=== PATIENT | male | born 1930 | race Caucasian/White ===

== ENCOUNTER 2017-08-26 12:14 | Observation (INO) ==
[2017-08-26] MEDS ORDERED: ADENOSINE 6 MG/2 ML VIAL ONE (12:33)
[2017-08-26] MEDS ORDERED: DILTIAZEM 100 MG VIAL.ADD IV ONE (12:40)
[2017-08-26] MEDS ORDERED: SODIUM CHLORIDE 0.9% 100 ML IV ONE (12:40)
[2017-08-26] MEDS ORDERED: DILTIAZEM 50 MG/10 ML VIAL IV ONE (12:40)
[2017-08-26] MEDS ORDERED: DILTIAZEM 50 MG/10 ML VIAL IV STA (12:43)
[2017-08-26 12:52] LABS: Basophils % 0.3 % (0.0-0.8); Eosinophils % 0.2 % (0.00-10.9); Hematocrit 36.5 VOL% (42.0-52.0); Hemoglobin 12.6 GM/DL (14.0-18.0); Immature Granulocytes % 0.7 %; Immature Granulocytes Absolute 0.07 #; Lymphocytes # 1.3 10*3/uL (1.4-4.0); Lymphocytes % 12.4 % (21.2-54.2); Mean Corpuscular HGB Conc 34.5 GM/DL (32-36); Mean Corpuscular Hemoglobin 35 PG (27-34); Mean Corpuscular Volume 100.6 FL (87-102); Mean Platelet Volume 10.4 FL (9.6-12.0); Monocytes # 1.1 10*3/uL (0.11-0.8); Monocytes % 10.7 % (1.7-12.7); Neutrophils # 7.8 10*3/uL (1.4-7.4); Neutrophils % 75.7 % (38.7-73.9); Platelet Count 231 T/CUMM (130-400); Red Blood Count 3.63 MC/CUMM (3.8-5.5); Red Cell Distribution Width 12.1 % (9.3-17.3); White Blood Count 10.3 T/CUMM (4-12)
[2017-08-26] MEDS ORDERED: ADENOSINE 6 MG/2 ML VIAL IV STA ×2 (12:52)
[2017-08-26 13:00] LABS: INR 1.1; PT Patient Result 11.4 SECS; Partial Thromboplastin Time 31.1 SECS (0-40)
[2017-08-26 13:12] LABS: Free T4 (Free Thyroxine) 0.89 NG/DL (0.76-1.46); Magnesium 2.5 MG/DL (1.8-2.4)
[2017-08-26] MEDS ORDERED: SODIUM CHLORIDE 0.9% 1,000 ML IV STA (13:12)
[2017-08-26] MEDS: DILTIAZEM INJ 100 MG in SODIUM CHLORIDE 0.9% 100 ML IV SCH (13:13)
[2017-08-26 13:18] LABS: Albumin 3.3 G/DL (3.4-5.0); Bilirubin,Total 0.8 MG/DL (0.2-1.0); Calcium 8.7 MG/DL (8.5-10.1); Osmolality,Calculated 271.1 MOS/KG (273-304); Potassium 3.9 MMOL/L (3.5-5.1); Thyroid Stimulating Hormone 7.97 uIU/ml (0.358-3.74); Total Protein 7.7 G/DL (6.4-8.3); Troponin I Only 0.034 NG/ML (0.00-0.045)
[2017-08-26] MEDS ORDERED: ZALEPLON 5 MG CAPSULE PO PRN (15:30)
[2017-08-26] MEDS ORDERED: ACETAMINOPHEN 325 MG TABLET PO PRN (15:30)
[2017-08-26] MEDS ORDERED: MORPHINE 2 MG/1 ML SYRINGE IV PRN (15:30)
[2017-08-26] MEDS ORDERED: DOCUSATE SODIUM 100 MG CAPSULE PO PRN (15:30)
[2017-08-26] MEDS ORDERED: ONDANSETRON 4 MG/2 ML VIAL IV PRN (15:30)
[2017-08-26] MEDS ORDERED: MAGNESIUM SULF RIDER 2 GM in PREMIX 1 EACH IV PRN ×2 (15:31→18:15)
[2017-08-26] MEDS ORDERED: MAGNESIUM SULF RIDER 4 GM in PREMIX 1 EACH IV PRN ×2 (15:31→18:15)
[2017-08-26] MEDS: ASPIRIN EC 325 MG TABLET PO SCH (18:00)
[2017-08-26] MEDS: PANTOPRAZOLE 40 MG TABLET PO SCH (18:00)
[2017-08-26] MEDS: ENOXAPARIN 40 MG/0.4 ML SYRINGE SUBCUT SCH ×2 (18:00→18:47)
[2017-08-26] MEDS: CARVEDILOL 6.25 MG TABLET PO SCH (21:33)
[2017-08-27 05:10] LABS: Basophils % 0.3 % (0.0-0.8); Eosinophils # 0.2 10*3/uL (0.0-0.87); Eosinophils % 2.1 % (0.00-10.9); Hemoglobin 10.7 GM/DL (14.0-18.0); Immature Granulocytes % 0.7 %; Immature Granulocytes Absolute 0.05 #; Lymphocytes # 1.5 10*3/uL (1.4-4.0); Lymphocytes % 19.9 % (21.2-54.2); Mean Corpuscular HGB Conc 34.5 GM/DL (32-36); Mean Corpuscular Hemoglobin 35 PG (27-34); Mean Platelet Volume 10.7 FL (9.6-12.0); Monocytes # 0.7 10*3/uL (0.11-0.8); Monocytes % 8.7 % (1.7-12.7); Neutrophils # 5.3 10*3/uL (1.4-7.4); Neutrophils % 68.3 % (38.7-73.9); Platelet Count 186 T/CUMM (130-400); Red Blood Count 3.07 MC/CUMM (3.8-5.5); Red Cell Distribution Width 12.1 % (9.3-17.3); White Blood Count 7.7 T/CUMM (4-12)
[2017-08-27 05:46] LABS: Albumin 2.6 G/DL (3.4-5.0); Bilirubin,Total 2.1 MG/DL (0.2-1.0); Calcium 8.1 MG/DL (8.5-10.1); Osmolality,Calculated 280.4 MOS/KG (273-304); Potassium 4.4 MMOL/L (3.5-5.1); Risk Ratio 2.92; Total Protein 5.7 G/DL (6.4-8.3)
[2017-08-27 05:49] LABS: Calcium 8.1 MG/DL (8.5-10.1); Magnesium 2.4 MG/DL (1.8-2.4); Osmolality,Calculated 279.5 MOS/KG (273-304); Potassium 4.4 MMOL/L (3.5-5.1)
[2017-08-27] MEDS: SODIUM CHLORIDE 0.9% 1,000 ML IV SCH ×3 (06:31→16:01)
[2017-08-27] MEDS: CARVEDILOL 6.25 MG TABLET PO SCH ×2 (08:38→21:20)
[2017-08-27] MEDS: ASPIRIN EC 325 MG TABLET PO SCH (08:38)
[2017-08-27] MEDS: PANTOPRAZOLE 40 MG TABLET PO SCH (08:38)
[2017-08-27 12:40] LABS: Free T4 (Free Thyroxine) 0.99 NG/DL (0.76-1.46); Thyroid Stimulating Hormone 3.48 uIU/ml (0.358-3.74)
[2017-08-27] MEDS: DILTIAZEM INJ 100 MG in SODIUM CHLORIDE 0.9% 100 ML IV SCH (16:00)
[2017-08-27] MEDS: ENOXAPARIN 40 MG/0.4 ML SYRINGE SUBCUT SCH ×3 (20:00→22:14)
[2017-08-28 06:19] LABS: Basophils # 0.1 10*3/uL (0.0-0.2); Basophils % 0.8 % (0.0-0.8); Eosinophils # 0.3 10*3/uL (0.0-0.87); Eosinophils % 3.3 % (0.00-10.9); Hematocrit 31.6 VOL% (42.0-52.0); Immature Granulocytes % 0.6 %; Immature Granulocytes Absolute 0.05 #; Lymphocytes # 1.4 10*3/uL (1.4-4.0); Lymphocytes % 18.2 % (21.2-54.2); Mean Corpuscular HGB Conc 34.8 GM/DL (32-36); Mean Corpuscular Hemoglobin 35 PG (27-34); Mean Platelet Volume 10.2 FL (9.6-12.0); Monocytes # 0.7 10*3/uL (0.11-0.8); Monocytes % 8.6 % (1.7-12.7); Neutrophils # 5.4 10*3/uL (1.4-7.4); Neutrophils % 68.5 % (38.7-73.9); Platelet Count 204 T/CUMM (130-400); Red Blood Count 3.16 MC/CUMM (3.8-5.5); Red Cell Distribution Width 11.9 % (9.3-17.3); White Blood Count 7.9 T/CUMM (4-12)
[2017-08-28 07:03] LABS: Albumin 2.6 G/DL (3.4-5.0); Bilirubin,Total 0.8 MG/DL (0.2-1.0); Calcium 7.7 MG/DL (8.5-10.1); Total Protein 5.4 G/DL (6.4-8.3)
[2017-08-28 07:04] LABS: Osmolality,Calculated 278.5 MOS/KG (273-304); Potassium 4.2 MMOL/L (3.5-5.1)
[2017-08-28 08:15] VITALS: BP 104/66
[2017-08-28] MEDS: PANTOPRAZOLE 40 MG TABLET PO SCH (08:17)
[2017-08-28] MEDS: ASPIRIN EC 325 MG TABLET PO SCH (08:17)
[2017-08-28] MEDS: CARVEDILOL 6.25 MG TABLET PO SCH (08:17)
== END 2017-08-28 09:08 | disposition home or self-care (01) ==
LOC: N.EDINP 12:14 → N.ED 12:14 → N.EDINP 15:44 → N.TELEN 16:11
PROVIDERS: ADMIT Internal Medicine Cardiovascular Disease; ATTEND Internal Medicine Cardiovascular Disease

== ENCOUNTER 2020-01-04 05:52 | Inpatient (IN) ==
[2019-12-28 13:43] LABS: Basophils % 0.4 % (0.0-0.8); Eosinophils # 0.1 10*3/uL (0.0-0.87); Eosinophils % 1.9 % (0.00-10.9); Hematocrit 36.4 VOL% (42.0-52.0); Immature Granulocytes % 1.3 %; Immature Granulocytes Absolute 0.09 #; Lymphocytes # 1.5 10*3/uL (1.4-4.0); Monocytes % 9.6 % (1.7-12.7); Neutrophils % 64.8 % (38.7-73.9); Platelet Count 175 T/CUMM (130-400); Red Blood Count 3.57 MC/CUMM (3.8-5.5); Red Cell Distribution Width 12.8 % (9.3-17.3)
[2019-12-28 14:04] LABS: Albumin 3.7 G/DL (3.4-5.0); Bilirubin,Total 0.8 MG/DL (0.2-1.0); Calcium 8.5 MG/DL (8.5-10.1); Total Protein 7.3 G/DL (6.4-8.3)
[2019-12-28 18:57] LABS: PT Patient Result 10.9 SECS (9.6-12.2)
[2020-01-04] MEDS ORDERED: ceFAZolin 1,000 MG in SYRINGE 1 EACH IV ONE (06:00)
[2020-01-04] MEDS ORDERED: VANCOMYCIN 500 MG VIAL ONE (06:34)
[2020-01-04] MEDS ORDERED: LIDOCAINE 2% TOP JELLY 5 ML TUBE TOP ONE (06:34)
[2020-01-04] MEDS ORDERED: LIDOCAINE 2% TOP JELLY 20 ML VIAL INTRAURETH ONE (06:37)
[2020-01-04] MEDS ORDERED: HEPARIN/NACL 0.9% 2 UNITS/ML 500 ML IV ONE (06:37)
[2020-01-04] MEDS: SODIUM CHLORIDE 0.9% 1,000 ML IV SCH (06:40)
[2020-01-04] MEDS ORDERED: ceFAZolin 1,000 MG VIAL ONE (06:55)
[2020-01-04] MEDS ORDERED: HEPARIN/NACL 0.9% 2 UNITS/ML 3,000 ML IV ONE (07:34)
[2020-01-04] MEDS ORDERED: ONDANSETRON 4 MG/2 ML VIAL IV PRN (10:31)
[2020-01-04] MEDS ORDERED: HYDROmorphone 2 MG/1 ML VIAL IV PRN (10:31)
[2020-01-04] MEDS ORDERED: BENZONATATE 100 MG PO PRN (10:34)
[2020-01-04] MEDS ORDERED: HEPARIN 10,000 UNIT/10 ML VIAL ONE (11:00)
[2020-01-04] MEDS ORDERED: LIDOCAINE 2% 5 ML VIAL ONE (11:00)
[2020-01-04] MEDS ORDERED: SEVOFLURANE 1 UNIT/15 MINUTE INH ONE (11:00)
[2020-01-04] MEDS ORDERED: PHENYLEPHRINE DRIP 20 MG/250 ML PREMIX IV ONE (11:00)
[2020-01-04] MEDS ORDERED: ePHEDrine 50 MG/ML AMP ONE (11:01)
[2020-01-04] MEDS ORDERED: PHENYLEPHRINE 1 MG/10 ML SYRINGE IV ONE (11:01)
[2020-01-04] MEDS ORDERED: ROCURONIUM 100 MG/10 ML VIAL IV ONE (11:01)
[2020-01-04] MEDS ORDERED: fentaNYL 100 MCG/2 ML VIAL ONE (11:01)
[2020-01-04] MEDS ORDERED: ETOMIDATE 40 MG/20 ML VIAL IV ONE (11:01)
[2020-01-04] MEDS ORDERED: PROTAMINE SULFATE 50 MG/5 ML VIAL IV ONE (11:01)
[2020-01-04] MEDS ORDERED: SODIUM CHLORIDE 0.9% 200 ML IV ONE (11:02)
[2020-01-04] MEDS: PYRIDOXINE 100 MG PO SCH ×3 (13:00→23:36)
[2020-01-04] MEDS: AMOXICILLIN 500 MG CAPSULE PO SCH ×2 (13:30→20:58)
[2020-01-04] MEDS: LACTATED RINGERS 1,000 ML IV SCH (18:37)
[2020-01-04] MEDS: TAMSULOSIN 0.4 MG CAPSULE PO SCH (20:58)
[2020-01-04] MEDS: [UNRECOGNIZED DRUG - OTHER] PO SCH (23:36)
[2020-01-05 04:31] LABS: Hematocrit 27.8 VOL% (42.0-52.0); Hemoglobin 9.4 GM/DL (14.0-18.0)
[2020-01-05 05:04] LABS: Calcium 7.7 MG/DL (8.5-10.1); Osmolality,Calculated 275.5 MOS/KG (273-304)
[2020-01-05] MEDS: AMOXICILLIN 500 MG CAPSULE PO SCH ×3 (05:22→20:17)
[2020-01-05] MEDS: LEVOTHYROXINE 88 MCG TABLET PO SCH (06:38)
[2020-01-05] MEDS: LACTATED RINGERS 1,000 ML IV SCH (06:43)
[2020-01-05] MEDS: TAMSULOSIN 0.4 MG CAPSULE PO SCH ×2 (09:17→20:17)
[2020-01-05] MEDS: SIMVASTATIN 20 MG TABLET PO SCH (09:17)
[2020-01-05] MEDS: [UNRECOGNIZED DRUG - OTHER] PO SCH ×2 (09:18→20:25)
[2020-01-05] MEDS: [UNRECOGNIZED DRUG - OTHER] PO SCH (09:18)
[2020-01-05] MEDS: PYRIDOXINE 100 MG PO SCH ×4 (09:19→20:26)
[2020-01-05] MEDS: COENZYME Q10 10 MG PO SCH (09:20)
[2020-01-05] MEDS: PREVAGEN PO SCH (09:20)
[2020-01-05] MEDS: DILTIAZEM HCL 120 MG PO SCH (09:20)
[2020-01-05] MEDS: SODIUM CHLORIDE 0.9% 1,000 ML IV SCH (10:29)
[2020-01-06] MEDS: AMOXICILLIN 500 MG CAPSULE PO SCH (03:32)
[2020-01-06] MEDS: LEVOTHYROXINE 88 MCG TABLET PO SCH (06:20)
[2020-01-06] MEDS: TAMSULOSIN 0.4 MG CAPSULE PO SCH (09:03)
[2020-01-06] MEDS: SIMVASTATIN 20 MG TABLET PO SCH (09:03)
[2020-01-06] MEDS: DILTIAZEM HCL 120 MG PO SCH (09:04)
[2020-01-06] MEDS: PYRIDOXINE 100 MG PO SCH (09:06)
[2020-01-06] MEDS: PREVAGEN PO SCH (09:06)
[2020-01-06] MEDS: COENZYME Q10 10 MG PO SCH (09:06)
[2020-01-06] MEDS: [UNRECOGNIZED DRUG - OTHER] PO SCH (09:07)
[2020-01-06] MEDS: [UNRECOGNIZED DRUG - OTHER] PO SCH (09:07)
[2020-01-06 11:23] VITALS: BP 122/53
== END 2020-01-06 11:30 | disposition home or self-care (01) | DRG 269 ==
LOC: N.OR 05:52 → N.SDSINP 05:54 → EDSTATUS 07:00 → N.SDSINP 10:31 → N.3E 11:41
PROVIDERS: ADMIT Surgery; ATTEND Surgery
PROC: IRERAAA (2020-01-04 08:00)

== ENCOUNTER 2020-10-01 12:14 | Inpatient (IN) ==
[2020-10-01 14:01] LABS: Bilirubin,Urine Negative (Negative); Blood, Urine Negative (Negative); Glucose,Urine (UA) Negative (Negative); Ketones,Urine Negative (Negative); Mucus,Urine Occasional /LPF (Occasional); Nitrite,Urine Negative (Negative); Protein,Urine 30 MG/DL; RBC,Urine 1 /HPF (0-4); Urine Appearance CLEAR (Clear); Urine Color Yellow (Yellow); Urine Urobilinogen < 2.0 EU/DL (0.2-1.0); WBC,Urine <1 /HPF (0-6)
[2020-10-01 14:09] LABS: Basophils % 0.2 % (0.0-0.8); Eosinophils # 0.1 10*3/uL (0.0-0.87); Eosinophils % 0.7 % (0.00-10.9); Hematocrit 34.7 VOL% (42.0-52.0); Hemoglobin 11.9 GM/DL (14.0-18.0); Immature Granulocytes % 0.8 %; Lymphocytes # 0.8 10*3/uL (1.4-4.0); Mean Corpuscular HGB Conc 34.3 GM/DL (32-36); Mean Corpuscular Volume 100.9 FL (87-102); Monocytes % 5.2 % (1.7-12.7); Neutrophils % 87.1 % (38.7-73.9); Platelet Count 152 T/CUMM (130-400); Red Blood Count 3.44 MC/CUMM (3.8-5.5); White Blood Count 13.2 T/CUMM (4-12)
[2020-10-01 14:27] LABS: Albumin 2.9 G/DL (3.4-5.0); Bilirubin,Total 1.4 MG/DL (0.2-1.0); Calcium 8.3 MG/DL (8.5-10.1); Osmolality,Calculated 273.1 MOS/KG (273-304); Potassium 4.1 MMOL/L (3.5-5.1); Total Protein 6.9 G/DL (6.4-8.3)
[2020-10-01] MEDS ORDERED: BISACODYL 5 MG TABLET PO PRN (15:07)
[2020-10-01] MEDS ORDERED: ONDANSETRON 4 MG/2 ML VIAL IV PRN (15:07)
[2020-10-01] MEDS ORDERED: ACETAMINOPHEN 325 MG TABLET PO PRN (15:07)
[2020-10-01] MEDS ORDERED: GLUCAGON 1 MG VIAL IM PRN (15:07)
[2020-10-01] MEDS ORDERED: DOCUSATE SODIUM 100 MG CAPSULE PO PRN (15:07)
[2020-10-01] MEDS ORDERED: MORPHINE 4 MG/1 ML VIAL IV PRN (15:07)
[2020-10-01] MEDS ORDERED: SIMETHICONE CHEW 125 MG TABLET PO PRN (15:07)
[2020-10-01] MEDS ORDERED: ALUMINUM/MAGNES/SIMETH MAX STR 30 ML UDCUP PO PRN (15:07)
[2020-10-01] MEDS ORDERED: guaiFENesin/DM ER 600-30 MG TABLET PO PRN (15:07)
[2020-10-01] MEDS ORDERED: hydrALAZINE 20 MG/1 ML VIAL IV PRN (15:07)
[2020-10-01] MEDS ORDERED: LACTULOSE 20 GM/30 ML UDCUP PO PRN (15:07)
[2020-10-01] MEDS ORDERED: DEXTROSE 50% 25 GM/50 ML VIAL IV PRN (15:07)
[2020-10-01] MEDS ORDERED: ZALEPLON 5 MG CAPSULE PO PRN (15:07)
[2020-10-01] MEDS ORDERED: CALCIUM CARBONATE CHEW 500 MG TABLET PO PRN (15:07)
[2020-10-01] MEDS ORDERED: SODIUM CHLORIDE 0.9% 1,000 ML IV SCH (15:30)
[2020-10-01] MEDS: ALBUTEROL 2.5 MG/3 ML NEB RESP TX SCH (19:58)
[2020-10-01] MEDS: ALBUTEROL/IPRATROPIUM 3 ML NEB RESP TX SCH (19:58)
[2020-10-01] MEDS: TAMSULOSIN 0.4 MG CAPSULE PO SCH (20:39)
[2020-10-02] MEDS: ALBUTEROL 2.5 MG/3 ML NEB RESP TX SCH (01:53)
[2020-10-02] MEDS: ALBUTEROL/IPRATROPIUM 3 ML NEB RESP TX SCH ×4 (01:53→19:17)
[2020-10-02] MEDS ORDERED: ceFAZolin 1,000 MG in SYRINGE 1 EACH IV ONE (06:00)
[2020-10-02] MEDS ORDERED: VANCOMYCIN INJ 1,000 MG in SODIUM CHLORIDE 0.9% 250 ML IV ONE (06:00)
[2020-10-02 06:21] LABS: Basophils % 0.2 % (0.0-0.8); Eosinophils # 0.1 10*3/uL (0.0-0.87); Eosinophils % 1.4 % (0.00-10.9); Hematocrit 29.7 VOL% (42.0-52.0); Hemoglobin 10.1 GM/DL (14.0-18.0); Immature Granulocytes % 0.9 %; Immature Granulocytes Absolute 0.09 #; Lymphocytes % 9.6 % (21.2-54.2); Mean Corpuscular Volume 100.7 FL (87-102); Mean Platelet Volume 10.2 FL (9.6-12.0); Monocytes % 7.8 % (1.7-12.7); Neutrophils % 80.1 % (38.7-73.9); Platelet Count 128 T/CUMM (130-400); Red Blood Count 2.95 MC/CUMM (3.8-5.5); Red Cell Distribution Width 13.2 % (9.3-17.3); White Blood Count 10.3 T/CUMM (4-12)
[2020-10-02 06:55] LABS: Albumin 2.4 G/DL (3.4-5.0); Calcium 7.8 MG/DL (8.5-10.1); Risk Ratio 3.14; Thyroid Stimulating Hormone 4.72 uIU/ml (0.358-3.74); Total Protein 5.9 G/DL (6.4-8.3); VLDL CHOLESTEROL 16.6 MG/DL
[2020-10-02] MEDS ORDERED: TRANEXAMIC ACID 1,000 MG/10 ML VIAL ONE (07:24)
[2020-10-02] MEDS ORDERED: DEXMEDETOMIDINE 200 MCG/2 ML VIAL ONE (07:24)
[2020-10-02] MEDS ORDERED: BUPIVACAINE SPINAL 0.75% 2 ML AMP SPINAL ONE (07:24)
[2020-10-02] MEDS ORDERED: MIDAZOLAM 2 MG/2 ML VIAL ONE (07:25)
[2020-10-02] MEDS ORDERED: DEXAMETHASONE 4 MG/1 ML VIAL ONE (07:30)
[2020-10-02] MEDS ORDERED: LIDOCAINE 1% 5 ML VIAL ONE (07:30)
[2020-10-02] MEDS ORDERED: ROPIVACAINE 0.5% 30 ML VIAL ONE (07:30)
[2020-10-02] MEDS ORDERED: DILTIAZEM CD 120 MG CAPSULE PO ONE (07:58)
[2020-10-02] MEDS: PANTOPRAZOLE 40 MG TABLET PO SCH (08:40)
[2020-10-02] MEDS: LEVOTHYROXINE 88 MCG TABLET PO SCH (08:40)
[2020-10-02] MEDS: TAMSULOSIN 0.4 MG CAPSULE PO SCH ×2 (08:40→20:41)
[2020-10-02] MEDS ORDERED: SIMVASTATIN 20 MG TABLET PO SCH (09:00)
[2020-10-02] MEDS ORDERED: TUBERCULIN SKIN TEST 0.1 ML SYRINGE INTRADERM ONE (09:17)
[2020-10-02] MEDS ORDERED: PHENYLEPHRINE 1 MG/10 ML SYRINGE IV ONE ×4 (10:06→10:28)
[2020-10-02] MEDS ORDERED: BACITRACIN OINT 0.9 GM PACK TOP ONE (10:32)
[2020-10-02] MEDS ORDERED: MORPHINE 4 MG/1 ML VIAL IV PRN ×2 (10:39)
[2020-10-02] MEDS ORDERED: MAGNESIUM HYDROXIDE SUSP 30 ML UDCUP PO PRN (10:39)
[2020-10-02] MEDS: LACTATED RINGERS 1,000 ML IV SCH ×3 (11:31→11:32)
[2020-10-02] MEDS: ceFAZolin 1,000 MG in SYRINGE 1 EACH IV SCH (16:50)
[2020-10-03] MEDS: ALBUTEROL/IPRATROPIUM 3 ML NEB RESP TX SCH ×4 (00:35→19:32)
[2020-10-03] MEDS ORDERED: ceFAZolin 1,000 MG in SYRINGE 1 EACH IV SCH (01:30)
[2020-10-03] MEDS: ceFAZolin 1,000 MG in SYRINGE 1 EACH IV SCH (01:39)
[2020-10-03] MEDS: ALBUTEROL 2.5 MG/3 ML NEB RESP TX SCH ×2 (02:05→09:37)
[2020-10-03] MEDS: FONDAPARINUX 2.5 MG/0.5 ML SYRINGE SUBCUT SCH (05:20)
[2020-10-03 05:55] LABS: Basophils % 0.1 % (0.0-0.8); Hematocrit 23.9 VOL% (42.0-52.0); Hemoglobin 8.3 GM/DL (14.0-18.0); Immature Granulocytes % 1.1 %; Immature Granulocytes Absolute 0.14 #; Lymphocytes # 0.5 10*3/uL (1.4-4.0); Lymphocytes % 4.1 % (21.2-54.2); Mean Corpuscular HGB Conc 34.7 GM/DL (32-36); Mean Corpuscular Volume 99.2 FL (87-102); Mean Platelet Volume 10.2 FL (9.6-12.0); Monocytes % 5.7 % (1.7-12.7); Platelet Count 122 T/CUMM (130-400); Red Blood Count 2.41 MC/CUMM (3.8-5.5); Red Cell Distribution Width 12.9 % (9.3-17.3); White Blood Count 13.1 T/CUMM (4-12)
[2020-10-03] MEDS ORDERED: SODIUM CHLORIDE 0.9% 1,000 ML IV PRN (06:14)
[2020-10-03] MEDS ORDERED: FUROSEMIDE 40 MG/4 ML VIAL IV PRN (06:14)
[2020-10-03 06:26] LABS: Hypochromasia 1+; Lymphocytes 3 % (20-55); Microcytosis 1+; Segmented Neutrophils 91 % (50-85); Total Cells Counted 100
[2020-10-03 07:52] LABS: % Iron Saturation 8.3 % (18-50); Ferritin 469.2 ng/ml (26-388)
[2020-10-03 08:45] LABS: Albumin 2.1 G/DL (3.4-5.0); Bilirubin,Total 0.5 MG/DL (0.2-1.0); Calcium 7.9 MG/DL (8.5-10.1); Osmolality,Calculated 280.8 MOS/KG (273-304); Total Protein 5.3 G/DL (6.4-8.3)
[2020-10-03 09:17] LABS: Folate 10.6 NG/ML (5.4-24.0)
[2020-10-03] MEDS: PANTOPRAZOLE 40 MG TABLET PO SCH (09:36)
[2020-10-03] MEDS: DILTIAZEM CD 120 MG CAPSULE PO SCH (09:37)
[2020-10-03] MEDS: LEVOTHYROXINE 88 MCG TABLET PO SCH (09:37)
[2020-10-03] MEDS: TAMSULOSIN 0.4 MG CAPSULE PO SCH ×2 (09:37→21:09)
[2020-10-03 16:58] LABS: Hematocrit 31.4 VOL% (42.0-52.0)
[2020-10-03 17:03] LABS: Hemoglobin 10.9 GM/DL (14.0-18.0)
[2020-10-03] MEDS ORDERED: SIMVASTATIN 20 MG TABLET PO SCH (21:00)
[2020-10-04] MEDS: ALBUTEROL/IPRATROPIUM 3 ML NEB RESP TX SCH ×3 (00:30→13:30)
[2020-10-04] MEDS: FONDAPARINUX 2.5 MG/0.5 ML SYRINGE SUBCUT SCH (05:37)
[2020-10-04 06:22] LABS: Basophils % 0.3 % (0.0-0.8); Eosinophils # 0.3 10*3/uL (0.0-0.87); Eosinophils % 3.2 % (0.00-10.9); Hematocrit 30.5 VOL% (42.0-52.0); Hemoglobin 10.6 GM/DL (14.0-18.0); Immature Granulocytes % 1.8 %; Immature Granulocytes Absolute 0.19 #; Lymphocytes # 1.5 10*3/uL (1.4-4.0); Lymphocytes % 13.9 % (21.2-54.2); Mean Corpuscular HGB Conc 34.8 GM/DL (32-36); Mean Corpuscular Volume 95.9 FL (87-102); Mean Platelet Volume 10.1 FL (9.6-12.0); Monocytes % 9.4 % (1.7-12.7); Neutrophils % 71.4 % (38.7-73.9); Platelet Count 126 T/CUMM (130-400); Red Blood Count 3.18 MC/CUMM (3.8-5.5); White Blood Count 10.7 T/CUMM (4-12)
[2020-10-04 06:42] LABS: Albumin 2.2 G/DL (3.4-5.0); Bilirubin,Total 1.2 MG/DL (0.2-1.0); Calcium 7.8 MG/DL (8.5-10.1); Osmolality,Calculated 280.7 MOS/KG (273-304); Potassium 3.9 MMOL/L (3.5-5.1); Total Protein 5.7 G/DL (6.4-8.3)
[2020-10-04] MEDS: TAMSULOSIN 0.4 MG CAPSULE PO SCH (08:53)
[2020-10-04] MEDS: PANTOPRAZOLE 40 MG TABLET PO SCH (08:53)
[2020-10-04] MEDS: LEVOTHYROXINE 88 MCG TABLET PO SCH (08:53)
[2020-10-04] MEDS: DILTIAZEM CD 120 MG CAPSULE PO SCH (08:53)
[2020-10-04] MEDS ORDERED: IRON SUCROSE 100 MG/5 ML VIAL IV SCH (09:00)
[2020-10-04] MEDS ORDERED: IRON SUCROSE 100 MG in SODIUM CHLORIDE 0.9% 100 ML IV SCH (09:00)
[2020-10-04 11:11] VITALS: BP 104/61
== END 2020-10-04 17:21 | DRG 522 ==
LOC: EDUNIT# 12:14 → N.ED 12:14 → N.EDINP 15:07 → N.3E 17:58
PROVIDERS: ADMIT Internal Medicine; ATTEND Internal Medicine